=== PATIENT | female | born 1950 | race Caucasian/White ===

== ENCOUNTER → 2020-06-27 09:12 | Outpatient (REF) | payer OTHER, SELFPAY ==
--- NOTE | 2020-06-27 09:30 | CA_ITS ---
Transthoracic Echocardiogram Patient (Last, First, Middle): Adrianna Noland, Gender: Female Date of : 1950 Age: 70 Procedure Date: 06/27/2020 Procedure Type: Transthoracic Echocardiogram Location: OP Height: 167.64 cm Weight: 58.97 kg BSA: 1.67 m2 Heart Rate: bpm BP: 110 / 60 mmHg Stripper Machine Operator: PHIL Stovall MD: Nguyễn Hobbs MD Symptoms: I42.8 NICM Study Quality: Fair ECG Rhythm: Sinus Conclusions: - The left ventricular systolic function is mildly decreased. The visually estimated ejection fraction is between 45-50%. - Mild global hypokinesis with additional regionality to basal inferior and inferolateral wall. - No obvious valvular pathology seen on this study. - There is mild dilatation of the aortic arch measuring 3.86 cm. Findings Left Ventricle Normal left ventricular cavity size. The left ventricular systolic function is mildly decreased. The visually estimated ejection fraction is between 45 50%. Diastolic function is normal for age. E/E prime ratio is <8, consistent with normal filling pressures. Mild global hypokinesis with additional regionality to basal inferior and inferolateral wall. Right Ventricle Normal right ventricular cavity size. There is low normal right ventricular systolic function. Atria Both atria are normal in size. Aortic Valve There is a normal trileaflet aortic valve. There is no aortic valve stenosis. There is no aortic valve regurgitation. Mitral Valve The mitral valve appears normal. There is trace mitral valve regurgitation. There is no mitral valve stenosis. Pulmonic Valve The pulmonic valve was not well visualized. Tricuspid Valve Normal tricuspid valve structure. There is trace tricuspid valve regurgitation. The pulmonary artery systolic pressure is normal. Great Vessels The asc aorta is normal in size. There is mild dilatation of the aortic arch measuring 3.86 cm. Venous The inferior vena cava is normal in size and collapses greater than 50% with inspiration. Pericardium/Pleural There is no evidence of pericardial effusion. Prior Study Comparison Changes noted compared to prior study dated: 06/18/2019. See comments on aortic arch. Recommendations, Care & Conclusions No obvious valvular pathology seen on this study. Measurements M-Mode Liner Measurements Normals - Women/Men AOV Cusps: 2.20 1.5-2.6 cm/m2 2D Linear Measurements IVSd: 0.83 0.6-0.9/0.6-1.0 cm LVIDd: 5.06 3.9-5.3/4.2-5.9 cm LVIDd Index: 3.03 2.4-3.2/2.2-3.1 cm/m2 LVIDs: 3.17 2.0-3.6 cm LVPWd: 0.89 0.7-1.1 cm Ao Root: 2.70 2.1-3.5 cm LA Diam: 3.80 2.7-3.8/3.0-4.0 cm LAIDs Index: 2.28 1.5-2.3 cm/m2 LV Mass: 189.83 67-162/88-224 g LV Mass Index: 113.67 43-95/49-115 g/m2 LVOT Diam: 2.30 3.0+(-)1.3 cm 2D Systolic Function EF 4C: 62.60 >55% EF 2C: 51.10 >55% Mitral Valve MV Pk E: 0.59 MV PK A: 0.70 MV Decel Time: 275.00 E/A: 0.80 E'Lateral: 6.53 E'Medial: 7.40 E/E' Med: 8.00 E/E' Lat: 9.10 PHT: 80.00 MVA PHT: 2.75 Decel [place]: 2.15 Aortic Valve AoV Pk Farzad: 1.08 AoV Pk Grad: 5.00 LVOT LVOT Pk Farzad: 0.56 LVOT Mn Farzad: 0.38 LVOT VTI: 0.13 LVOT Pk Grad: 1.00 LVOT Mn Grad: 1.00 LVOT Diam: 2.30 LVOT Area: 4.15 Diastolic Function MV Pk E: 0.59 MV Pk A: 0.70 E/A: 0.80 E'Medial: 7.40 E/E' Med: 8.00 E' Laterial: 6.53 E/E' Lat: 9.10 Tricuspid Valve RA Press: 3.00 Great Vessels Aorta Ao Root-2D: 2.70 2.0-3.7 cm Ao Asc: 2.80 2.1-3.4 cm Ao Arch: 3.86 Pulmonary Valve PV Pk Farzad: 0.94 Peak PV Grad: 4.00 Updated in Other Vendor System with Status of Final Nguyễn Hobbs MD electronically signed on 06/28/2020 2:54:11 PM with status of Final
== END ==
LOC: HO.CARD 09:12
PROVIDERS: PCP Internal Medicine; Visit Provider Internal Medicine
DX: I42.8 Other cardiomyopathies (principal)
CPT/HCPCS: 93306

== ENCOUNTER → 2020-07-10 09:26 | Outpatient (BNVA) | payer OTHER, SELFPAY | PROVIDERS: PCP Internal Medicine; Visit Provider Internal Medicine | DX: I42.8 Other cardiomyopathies (principal); I71.2 Thoracic aortic aneurysm, without rupture | CPT/HCPCS: 93005; 99212 ==

== ENCOUNTER → 2020-12-22 14:32 | Outpatient (REF) | payer OTHER, SELFPAY ==
--- NOTE | 2020-12-22 14:39 | CA_ITS ---
Transthoracic Echocardiogram Patient (Last, First, Middle): Adrianna Noland, Gender: Female Date of : 1950 Age: 70 Procedure Date: 12/22/2020 Procedure Type: Transthoracic Echocardiogram Location: OP Height: 167.64 cm Weight: 56.7 kg BSA: 1.64 m2 Heart Rate: bpm BP: 118 / 60 mmHg Plant Maintenance Mechanic: Referring MD: Nguyễn Hobbs MD Symptoms: I71.2 - Thoracic aortic aneurysm, without rupture Study Quality: Fair ECG Rhythm: Sinus Conclusions: - The left ventricular systolic function is mildly decreased. The calculated ejection fraction is 47% by biplane method. - No obvious valvular pathology seen on this study. Findings Left Ventricle Normal left ventricular cavity size. There is normal left ventricular wall thickness. The left ventricular systolic function is mildly decreased. The calculated ejection fraction is 47% by biplane method. There is no evidence of regional wall motion abnormalities. E/E prime ratio is <8, consistent with normal filling pressures. Evidence suggests grade I (mild) diastolic dysfunction. Right Ventricle Normal right ventricular cavity size and systolic function. Atria Both atria are normal in size. Aortic Valve There is a normal trileaflet aortic valve. There is no aortic valve stenosis. There is no aortic valve regurgitation. Mitral Valve The mitral valve appears normal. There is trace mitral valve regurgitation. There is no mitral valve stenosis. Pulmonic Valve The pulmonic valve was not well visualized. Tricuspid Valve Normal tricuspid valve structure. There is trace tricuspid valve regurgitation. The pulmonary artery systolic pressure is normal. Great Vessels The aortic annulus, sinuses of valsalva, and asc aorta are normal in size. Arch not well visualized. Venous The inferior vena cava is normal in size and collapses greater than 50% with inspiration. Pericardium/Pleural There is no evidence of pericardial effusion. Prior Study Comparison No significant change compared to prior study dated: 06/27/2020. Recommendations, Care & Conclusions No obvious valvular pathology seen on this study. Measurements 2D Linear Measurements IVSd: 0.79 0.6-0.9/0.6-1.0 cm LVIDd: 4.44 3.9-5.3/4.2-5.9 cm LVIDd Index: 2.71 2.4-3.2/2.2-3.1 cm/m2 LVIDs: 3.16 2.0-3.6 cm LVPWd: 0.81 0.7-1.1 cm Ao Root: 3.30 2.1-3.5 cm LA Diam: 3.70 2.7-3.8/3.0-4.0 cm LAIDs Index: 2.26 1.5-2.3 cm/m2 LV Mass: 137.91 67-162/88-224 g LV Mass Index: 84.09 43-95/49-115 g/m2 LVOT Diam: 2.50 3.0+(-)1.3 cm 2D Systolic Function EF 4C: 44.30 >55% EF 2C: 48.80 >55% EF BiP: 47.10 >55% Mitral Valve MV Pk E: 0.54 MV PK A: 0.66 MV Decel Time: 207.00 E/A: 0.80 E'Lateral: 7.18 E'Medial: 5.11 E/E' Med: 10.50 E/E' Lat: 7.50 PHT: 61.00 MVA PHT: 3.61 Decel [place]: 2.58 Aortic Valve AoV Pk Farzad: 1.17 AoV Mn Farzad: 0.77 AoV VTI: 0.29 AoV Pk Grad: 5.00 Aov Mn Grad: 3.00 ISAK Cont.VTI: 2.23 LVOT LVOT Pk Farzad: 0.54 LVOT Mn Farzad: 0.32 LVOT VTI: 0.13 LVOT Pk Grad: 1.00 LVOT Mn Grad: 1.00 LVOT Diam: 2.50 LVOT Area: 4.91 Diastolic Function MV Pk E: 0.54 MV Pk A: 0.66 E/A: 0.80 E'Medial: 5.11 E/E' Med: 10.50 E' Laterial: 7.18 E/E' Lat: 7.50 Right Ventricle TAPSE (mm): 2.77 Tricuspid Valve TR Pk Farzad: 1.88 TR Pk Grad: 14.00 RA Press: 3.00 RVSP: 17.00 Great Vessels Aorta Ao Root-2D: 3.30 2.0-3.7 cm Ao Asc: 3.20 2.1-3.4 cm Pulmonary Valve PV Pk Farzad: 0.81 Peak PV Grad: 3.00 Updated in Other Vendor System with Status of Final Nguyễn Anjel MD electronically signed on 12/23/2020 8:58:35 AM with status of Final
== END ==
LOC: HO.CARD 14:32
PROVIDERS: PCP Internal Medicine; Visit Provider Internal Medicine
DX: I71.2 Thoracic aortic aneurysm, without rupture (principal)
CPT/HCPCS: 93306

== ENCOUNTER → 2021-01-05 14:43 | Outpatient (BNVA) | payer OTHER, SELFPAY | PROVIDERS: PCP Internal Medicine; Visit Provider Internal Medicine | DX: R15.9 Full incontinence of feces (principal); A04.72 Enterocolitis due to Clostridium difficile, not specified as recurrent; I42.8 Other cardiomyopathies | CPT/HCPCS: 99202 ==

== ENCOUNTER → 2021-01-08 14:17 | Outpatient (BNVA) | payer OTHER, SELFPAY | PROVIDERS: PCP Internal Medicine; Referring Provider Internal Medicine; Visit Provider Internal Medicine | DX: I42.8 Other cardiomyopathies (principal); I71.2 Thoracic aortic aneurysm, without rupture | CPT/HCPCS: 99212 ==

== ENCOUNTER → 2021-12-15 12:35 | Outpatient (REF) | payer OTHER, SELFPAY ==
--- NOTE | 2021-12-15 12:39 | CA_ITS ---
Transthoracic Echocardiogram Patient (Last, First, Middle): Adrianna Noland, Gender: Female Date of : 1950 Age: 71 Procedure Date: 12/15/2021 Procedure Type: Transthoracic Echocardiogram Location: OP Height: 167.64 cm Weight: 56.7 kg BSA: 1.64 m2 Heart Rate: 61 bpm BP: 110 / 60 mmHg Referring MD: Nguyễn Hobbs MD Symptoms: I71.2 - Thoracic aortic aneurysm, without rupture Study Quality: Adequate w contrast ECG Rhythm: Sinus Conclusions: - The left ventricular systolic function is mildly decreased. The visually estimated ejection fraction is between 45-50%. - No obvious valvular pathology seen on this study. Findings Procedure Information Contrast agent, definity, is being given per protocol without apparent complications. Left Ventricle Mildly increased left ventricular cavity size. There is normal left ventricular wall thickness. The left ventricular systolic function is mildly decreased. The visually estimated ejection fraction is between 45-50%. E/E prime ratio is between 8 and 15 consistent with indeterminate filling pressures. Evidence suggests grade I (mild) diastolic dysfunction. Right Ventricle Normal right ventricular cavity size and systolic function. Atria Both atria are normal in size. Aortic Valve There is a normal trileaflet aortic valve. There is no aortic valve stenosis. There is no aortic valve regurgitation. Mitral Valve The mitral valve appears normal. There is trace mitral valve regurgitation. There is no mitral valve stenosis. Pulmonic Valve The pulmonic valve is likely normal. Tricuspid Valve There is trace tricuspid valve regurgitation. The pulmonary artery systolic pressure is normal. Great Vessels The asc aorta and aortic arch are normal in size. Venous The inferior vena cava is normal in size and collapses greater than 50% with inspiration. Pericardium/Pleural There is no evidence of pericardial effusion. Prior Study Comparison No significant change compared to prior study dated: 12/22/2020. Recommendations, Care & Conclusions No obvious valvular pathology seen on this study. Measurements 2D Linear Measurements IVSd: 0.80 0.6-0.9/0.6-1.0 cm LVIDd: 5.58 3.9-5.3/4.2-5.9 cm LVIDd Index: 3.40 2.4-3.2/2.2-3.1 cm/m2 LVIDs: 4.23 2.0-3.6 cm LVPWd: 0.89 0.7-1.1 cm LA Diam: 3.80 2.7-3.8/3.0-4.0 cm LAIDs Index: 2.32 1.5-2.3 cm/m2 LV Mass: 218.92 67-162/88-224 g LV Mass Index: 133.49 43-95/49-115 g/m2 LVOT Diam: 2.50 3.0+(-)1.3 cm 2D Systolic Function EF 4C: 66.60 >55% EF 2C: 56.90 >55% Mitral Valve MV Pk E: 0.64 MV PK A: 0.65 MV Decel Time: 195.00 E/A: 1.00 E'Lateral: 4.35 E'Medial: 5.11 E/E' Med: 12.50 E/E' Lat: 14.70 PHT: 57.00 MVA PHT: 3.86 Decel [place]: 3.28 Aortic Valve AoV Pk Farzad: 1.17 AoV Mn Farzad: 0.79 AoV VTI: 0.26 AoV Pk Grad: 5.00 Aov Mn Grad: 3.00 ISAK Cont.VTI: 2.57 LVOT LVOT Pk Farzad: 0.63 LVOT Mn Farzad: 0.41 LVOT VTI: 0.14 LVOT Pk Grad: 2.00 LVOT Mn Grad: 1.00 LVOT Diam: 2.50 LVOT Area: 4.91 Diastolic Function MV Pk E: 0.64 MV Pk A: 0.65 E/A: 1.00 E'Medial: 5.11 E/E' Med: 12.50 E' Laterial: 4.35 E/E' Lat: 14.70 Right Ventricle TAPSE (mm): 20.70 TVS' Farzad: 11.40 Tricuspid Valve TR Pk Farzad: 2.10 TR Pk Grad: 18.00 RA Press: 3.00 RVSP: 21.00 Great Vessels Aorta Sinus of Valsalva: 3.20 2.0-3.5 cm Ao Asc: 3.20 2.1-3.4 cm Ao Arch: 3.50 Pulmonary Veins Pulm Vein S/D 1.30 Pulmonary Valve PV Pk Farzad: 0.80 Peak PV Grad: 3.00 Updated in Other Vendor System with Status of Final Nguyễn Hobbs MD electronically signed on 12/15/2021 4:22:28 PM with status of Final
== END ==
LOC: HO.CARD 12:35
PROVIDERS: Visit Provider Internal Medicine
DX: I71.2 Thoracic aortic aneurysm, without rupture (principal)
CPT/HCPCS: 93306; Q9957

== ENCOUNTER → 2022-02-04 14:07 | Outpatient (BNVA) | payer OTHER, SELFPAY | PROVIDERS: PCP Internal Medicine; Referring Provider Internal Medicine; Visit Provider Internal Medicine | DX: I42.8 Other cardiomyopathies (principal) | CPT/HCPCS: 93005; 99212 ==

== ENCOUNTER 2023-02-10 13:14 | Outpatient (AMB) | payer OTHER, SELFPAY ==
--- NOTE | 2023-02-10 13:29 | A.OFFVIS_ITS ---
Intake Vital Signs 02/10/23 13:30 Height 5 ft 6 in Weight 138 lb 7.205 oz BMI 22.3 BP 102/68 Blood Pressure Location Lt brachial Position Sitting Pulse 85 Intake Visit Reasons: 1 year follow up Intake Note: 1 year follow up w/ EKG Car Ferry Captain Required: No Accompanied by: Spouse Allergies amoxicillin [Augmentin] Allergy (Unknown, Verified 02/10/23 13:32) rash clavulanic acid [Augmentin] Allergy (Unknown, Verified 02/10/23 13:32) rash diazepam [Valium] Allergy (Unknown, Verified 02/10/23 13:32) unk nitrofurantoin [From Macrobid] Allergy (Unknown, Verified 02/10/23 13:32) unk oxycodone [Percocet] Allergy (Unknown, Verified 02/10/23 13:32) unk simvastatin Allergy (Unknown, Verified 02/10/23 13:32) unk sulfamethoxazole [From Bactrim] Allergy (Unknown, Verified 02/10/23 13:32) unk trimethoprim [From Bactrim] Allergy (Unknown, Verified 02/10/23 13:32) unk cafergot Allergy (Unknown, Uncoded 02/10/23 13:32) unk Latex Gloves Allergy (Unknown, Uncoded 02/10/23 13:32) unk Medication List - Last Reconciled 02/10/23 by Nguyễn Hobbs MD cholecalciferol (vitamin D3) three timed a week orally; metoprolol succinate ER 12.5 mg (1/2 x 25 mg) PO DAILY 90 days spironolactone 12.5 mg (1/2 x 25 mg) PO DAILY HPI HPI Comments History of Present Illness Details Adrianna returns for follow-up regarding cardiomyopathy. To recall, she was a patient of [facility]. She has a history of longstanding nonischemic cardiomyopathy. Initially diagnosed around 2009. At t hat time, LVEF was 40-45%. Subsequently stress test with normal perfusion. It seems that she has had another stress test in 2018 which also showed normal perfusion. Overall, she is generally doing okay. Some intermittent palpitations. With activity, she may feel short of breath. No angina. [facility] Medical History (Updated 02/10/23 @ 13:47 by Nguyễn Hobbs MD) Clostridium difficile colitis Fecal incontinence Nonischemic cardiomyopathy Surgical History No pertinent past surgical history Family History Father No problems noted. Mother No problems noted. Social History Alcohol intake: never Patient Tobacco Use Status: Former Tobacco user Quit Date: Years Smoked: 8 +/- Review of Systems Const Denies weakness ENT Denies dizziness Card Denies chest pain, Denies chest pain with activity, Denies syncope, Denies rapid heart rate, Denies pedal edema, Denies edema, Denies leg edema, Denies lightheadedness, Denies palpitations, Denies dyspnea, Denies dyspnea on exertion and Denies orthopnea Resp Denies cough, Denies dyspnea and Denies dyspnea on exertion GI Denies hematochezia and Denies change in stool character Musc Denies abnormal gait, Denies muscle cramps, Denies muscle weakness, Denies numbness, Denies radiating pain into limb and Denies tingling Neuro Denies abnormal gait, Denies dizziness, Denies syncope, Denies numbness, Denies tingling and Denies weakness Endo Denies palpitations Physical Exam Vital Signs: Last Vital Signs Pulse 85 02/10/23 13:30 BP 102/68 02/10/23 13:30 BMI result Body Mass Index 22.3 Const General: comfortable and no acute distress Orientation/consciousness: patient oriented x3 HEENT Other: Unremarkable Head: Yes normal to inspection Neck Neck: Yes normal visual inspection Chest Chest palpation & inspection: normal inspection of the chest Resp Auscultation: clear to auscultation bilaterally Cardio Palpation: normal PMI Heart sounds: S1 normal heart sound present, S2 normal heart sound present, no gallops, no murmurs and no rubs GI Palpation (GI): Soft to palpation Back/Spine/Pelvis Other: unremarkable Skin General skin exam: no rashes or lesions noted Neuro General: patient oriented x3 Extrem General: Yes normal to inspection Psych Mental Status: mental status grossly normal Office Procedures EKG Details: EKG with sinus rhythm at 85/Min; right bundle-branch morphology PVCs. Mild ST depression in the inferior and anterolateral leads but similar to prior. [id number], Complete Assessment & Plan Assessment & Plan (1) Nonischemic cardiomyopathy: Code(s): I42.8 - Other cardiomyopathies Plan: In the last echocardiogram, LVEF 45-50%. Overall, unchanged from before. Clinically, she has got no symptoms. Continue current regimen. Due to low blood pressure, it seems that she is off losartan. We need to get labs from her PCP. Will request the same. (2) PVC (premature ventricular contraction): Code(s): I49.3 - Ventricular premature depolarization Plan She has mild cardiomyopathy based on prior echocardiograms. She has only on a small dose of beta-blockers with spironolactone. Was on losartan but stopped because of low blood pressure issues. Due to frequent PVCs on EKG as well as shortness of breath with activity, will pursue further workup. Echocardiogram, Holter and stress test are being ordered. Findings as well as plan discussed with patient and significant other and they understand and agree. Orders: Orders CA echo transthoracic complete Today I42.8 - Other cardiomyopathies, I49.3 - Ventricular premature depolarization CA stress test Today I49.3 - Ventricular premature depolarization NM cardiolite stress test Today I49.3 - Ventricular premature depolarization ECG 3 day holter monitor Today I49.3 - Ventricular premature depolarization, R00.2 - Palpitations Coding Level of Care Code Est Pt Level 4 (34341) Diagnoses Nonischemic cardiomyopathy I42.8 PVC (premature ventricular contraction) I49.3 CPT Codes EKG - CPT: 84720-[id number], Complete ([id number])
[2023-02-10 13:30] VITALS: BP 102/68; PULSE 85; BMI 22.3
== END 2023-02-10 13:55 | disposition home or self-care (01) ==
PROVIDERS: PCP Internal Medicine; Visit Provider Internal Medicine
DX: I42.8 Other cardiomyopathies (principal); I49.3 Ventricular premature depolarization
CPT/HCPCS: 93010; 99214

== ENCOUNTER → 2023-02-10 13:14 | Outpatient (BNVA) | payer OTHER, SELFPAY | PROVIDERS: PCP Internal Medicine; Visit Provider Internal Medicine | DX: I42.8 Other cardiomyopathies (principal); I49.3 Ventricular premature depolarization | CPT/HCPCS: 93005; 99212 ==

== ENCOUNTER → 2023-05-10 07:52 | Outpatient (REF) | payer OTHER, SELFPAY ==
--- NOTE | ~2023-05-10 | NM_ITS ---
Exercise Myocardial perfusion study Indication: PVCs with chest discomfort to evaluate for myocardial ischemia Technique: The patient was brought in for an exercise perfusion study on 05/10/2023. Patient performed exercise as per Pierre protocol and was injected 25 mCi of sestamibi was given intravenously one target HR was achieved. Images were obtained using the SPECT gamma camera interlaced with the gating device. Images were obtained in supine position. Resting perfusion study was performed on 05/12/2023. Patient was administered 25 mCi of sestamibi intravenously at rest. Images were then obtained in supine position. Images obtained with and without CT attenuation. Total DLP 114 mGy-cm Images were processed with the software and compared side to side in short axis, horizontal long axis and vertical long axis views. Findings: Both stress and rest perfusion study was suboptimal due to arms down as well as intense para-cardiac activity, question hiatal hernia noted as well as subdiaphragmatic liver uptake. There is interference with the lateral wall uptake The stress perfusion study showed non attenuated images show mildly reduced uptake in the entire inferolateral and lateral wall of the LV myocardium. Attenuated corrected images show normal uptake of radiotracer in all segments of LV myocardium.. The gated study shows reduced LV systolic function with calculated LVEF of 44%. LV cavity is normal in size. The gated study shows normal systolic wall thickening and contraction of all segments. There is no transient ischemic dilation. Resting study shows both attenuated as well as non attenuated images are suboptimal with severely reduced uptake noted on non attenuated images. Gating at rest reveals normal systolic wall motion with ejection fraction at 40%. The findings are consistent with likely normal myocardial perfusion based on attenuated corrected stress images although confidence of interpretation is low given extracardiac activity interfering with myocardial uptake. NM/NM cardiolite stress test Impression: 1. Likely normal myocardial perfusion 2. Gated LVEF is 44%, visually appears to be higher. Consider echocardiogram 3. Transient ischemic dilatation not present Stress EKG is no other EKG changes
--- NOTE | 2023-05-10 07:56 | CA_ITS ---
Transthoracic Echocardiogram Patient (Last, First, Middle): Adrianna Noland, Gender: Female Date of : 1950 Age: 72 Procedure Date: 05/10/2023 Procedure Type: Transthoracic Echocardiogram Location: OP Height: 167.64 cm Weight: 63.5 kg BSA: 1.72 m2 Heart Rate: 60 bpm BP: 120 / 70 mmHg Stage Manager: JEROME Stovall MD: Nguyễn Hobbs MD Retail Support Associate: Christian Mejia MD Symptoms: I49.3 - Ventricular premature depolarization Study Quality: Fair ECG Rhythm: Sinus Conclusions: - 1. Mildly dilated left ventricle with mildly to moderately reduced LV systolic function with LVEF of 40-45% with impaired relaxation filling pattern 2. Mild mitral regurgitation 3. Normal RV systolic pressure 4. No gross pericardial effusion Findings Left Ventricle Mildly increased left ventricular cavity size. There is normal left ventricular wall thickness. The left ventricular systolic function is mild to moderately decreased. The visually estimated ejection fraction is between 40-45%. Spectral Doppler is indicative of an impaired relaxation filling pattern. E/E prime ratio is between 8 and 15 consistent with indeterminate filling pressures. Peak GLS is -14.0%, which is moderately reduced. Right Ventricle Normal right ventricular cavity size and systolic function. Atria Both atria are normal in size. There is no evidence of interatrial shunt. Aortic Valve The aortic valve structure and function is likely normal. There is no aortic valve stenosis. There is no aortic valve regurgitation. Mitral Valve There is mild anterior and posterior mitral leaflet thickening. There is mild mitral valve regurgitation. There is no mitral valve stenosis. Pulmonic Valve The pulmonic valve is likely normal. Tricuspid Valve Normal tricuspid valve structure. There is trace tricuspid valve regurgitation. The right ventricular systolic pressure is normal. The right ventricular systolic pressure is 19 mmHg. Normal right atrial pressure. There is no evidence of pulmonary hypertension. Great Vessels All visible segments of the aorta are normal in size. The pulmonary artery was not well visualized. Venous The inferior vena cava is normal in size and collapses greater than 50% with inspiration. Pericardium/Pleural There is no evidence of pericardial effusion. Prior Study Comparison Changes noted compared to prior study dated: 12/15/2021. LV systolic function is further mildly depressed Measurements 2D Linear Measurements IVSd: 0.74 0.6-0.9/0.6-1.0 cm LVIDd: 5.77 3.9-5.3/4.2-5.9 cm LVIDd Index: 3.35 2.4-3.2/2.2-3.1 cm/m2 LVIDs: 4.06 2.0-3.6 cm LVPWd: 0.69 0.7-1.1 cm LA Diam: 3.80 2.7-3.8/3.0-4.0 cm LAIDs Index: 2.21 1.5-2.3 cm/m2 LV Mass: 188.39 67-162/88-224 g LV Mass Index: 109.53 43-95/49-115 g/m2 LVOT Diam: 2.60 3.0+(-)1.3 cm 2D Systolic Function EF 4C: 47.70 >55% EF 2C: 41.20 >55% EF BiP: 45.30 >55% Mitral Valve MV Pk E: 0.64 MV PK A: 0.87 MV Decel Time: 162.00 E/A: 0.70 E'Lateral: 6.53 E'Medial: 5.00 E/E' Med: 12.90 E/E' Lat: 9.80 PHT: 47.00 MVA PHT: 4.68 Decel [place]: 3.96 Aortic Valve AoV Pk Farzad: 1.20 AoV Mn Farzad: 0.89 AoV VTI: 0.31 AoV Pk Grad: 6.00 Aov Mn Grad: 3.00 ISAK Cont.VTI: 2.58 LVOT LVOT Pk Farzad: 0.58 LVOT Mn Farzad: 0.48 LVOT VTI: 0.15 LVOT Pk Grad: 1.00 LVOT Mn Grad: 1.00 LVOT Diam: 2.60 LVOT Area: 5.31 Diastolic Function MV Pk E: 0.64 MV Pk A: 0.87 E/A: 0.70 E'Medial: 5.00 E/E' Med: 12.90 E' Laterial: 6.53 E/E' Lat: 9.80 Right Ventricle TAPSE (mm): 19.60 TVS' Farzad: 7.83 Tricuspid Valve TR Pk Farzad: 1.98 TR Pk Grad: 16.00 RA Press: 3.00 RVSP: 19.00 Great Vessels Aorta Sinus of Valsalva: 3.70 2.0-3.5 cm Ao Asc: 3.30 2.1-3.4 cm Pulmonary Valve PV Pk Farzad: 0.76 Peak PV Grad: 2.00 Updated in Other Vendor System with Status of Final Christian Mejia MD electronically signed on 05/11/2023 4:56:14 PM with status of Final
--- NOTE | 2023-05-10 07:56 | CA_ITS ---
Acquisition Time: 2023-05-10 09:19:30 Total Exercise Time: 00:06:59 Test Indications: SOB, CARDIOMYOPATHY Medications: Protocol: TYREE Max HR: 130 BPM 88% of Pred: 147 BPM Max BP: 146/060 mmHG Max Work Load: 8.5 METS Exercise stress test with exercise 6 min 59 sec of Tyree protocol achieving 87% MPHR, with report of fullness in chest, mild SOB, islayed PVCs, with normotensive response to exercise, with baseline EKG abnormalites no signifcant changes. Nuclear images pending. Test reviewed with Dr. Mejia Referred By: Nguyễn Hobbs Overread By: Alix Lorenzo
--- NOTE | 2023-05-10 07:56 | HM_ITS ---
* Total monitoring time 3 days. * Underlying rhythm is sinus with an average rate of 70/Min. Range 53 to 95/Min. * Frequent ventricular ectopy with a burden of 1.9%. Mostly isolated beats but also includes couplets, triplets, bigeminy and trigeminy. 2 brief runs. Longest 6 beats. * Rare supraventricular ectopy. * No significant pauses or AV blocks. * Patient symptoms including chest pain/rapid heartbeat correlates with PVCs. MTDD
== END ==
LOC: HO.CARD 07:52
PROVIDERS: PCP Internal Medicine; Visit Provider Internal Medicine
DX: I49.3 Ventricular premature depolarization (principal); I42.8 Other cardiomyopathies; R00.2 Palpitations
CPT/HCPCS: 78452; 93017; 93242; 93306; 93356; A9500

== ENCOUNTER 2023-05-30 13:12 | Outpatient (REF) | payer OTHER, SELFPAY | END 2023-05-30 13:13 | disposition home or self-care (01) | LOC: HO.LAB 13:12 | PROVIDERS: PCP Internal Medicine; Visit Provider Internal Medicine | DX: I42.8 Other cardiomyopathies (principal) | CPT/HCPCS: 36415; 80048; 83880; 99212 ==

== ENCOUNTER 2023-05-30 13:12 | Outpatient (AMB) | payer OTHER, SELFPAY ==
[2023-05-30 13:17] VITALS: BP 138/72; PULSE 72; BMI 22.8
--- NOTE | 2023-05-30 13:17 | MHC.OFFVIS ---
Intake Vital Signs 05/30/23 13:17 Height 5 ft 6 in Weight 141 lb 1.533 oz BMI 22.8 BP 138/72 Blood Pressure Location Lt brachial Position Sitting Pulse 72 Intake Visit Reasons: f/up echo/ holter/ stress Intake Note: Follow-up echo , holter and stress feeling good Noteman Required: No Allergies amoxicillin [Augmentin] Allergy (Unknown, Verified 02/10/23 13:32) rash clavulanic acid [Augmentin] Allergy (Unknown, Verified 02/10/23 13:32) rash diazepam [Valium] Allergy (Unknown, Verified 02/10/23 13:32) unk nitrofurantoin [From Macrobid] Allergy (Unknown, Verified 02/10/23 13:32) unk oxycodone [Percocet] Allergy (Unknown, Verified 02/10/23 13:32) unk simvastatin Allergy (Unknown, Verified 02/10/23 13:32) unk sulfamethoxazole [From Bactrim] Allergy (Unknown, Verified 02/10/23 13:32) unk trimethoprim [From Bactrim] Allergy (Unknown, Verified 02/10/23 13:32) unk cafergot Allergy (Unknown, Uncoded 02/10/23 13:32) unk Latex Gloves Allergy (Unknown, Uncoded 02/10/23 13:32) unk Medication List - Last Reconciled 05/30/23 by Nguyễn Hobbs MD cholecalciferol (vitamin D3) three timed a week orally; metoprolol succinate ER 12.5 mg (1/2 x 25 mg) PO DAILY 90 days spironolactone 12.5 mg (1/2 x 25 mg) PO DAILY HPI HPI Comments History of Present Illness Details Adrianna returns for follow-up regarding cardiomyopathy. To recall, she was a patient of [facility]. She has a history of longstanding nonischemic cardiomyopathy. Initially diagnosed around 2009. At that time, LVEF was 40-45%. Subsequently stress test with normal perfusion. It seems that she has had another stress test in 2018 which also showed normal perfusion. Overall, doing fine. No new concerns. No major cardiac symptoms within limits of her activity. [facility] Medical History (Updated 02/10/23 @ 13:47 by Nguyễn Hobbs MD) Clostridium difficile colitis Fecal incontinence Nonischemic cardiomyopathy Surgical History No pertinent past surgical history Family History Father No problems noted. Mother No problems noted. Social History Alcohol intake: never Patient Tobacco Use Status: Former Tobacco user Quit Date: Years Smoked: 8 +/- Review of Systems Const Denies chills, Denies fatigue, Denies fever(s), Denies frequent falls, Denies weakness, Denies weight gain and Denies weight loss ENT Denies dizziness Card Denies chest pain, Denies leg edema, Denies lightheadedness, Denies palpitations, Denies dyspnea, Denies dyspnea on exertion, Denies orthopnea and Denies other (loss of consciousness) Resp Denies cough, Denies dyspnea and Denies dyspnea on exertion GI Denies hematochezia and Denies change in stool character Musc Denies abnormal gait, Denies muscle weakness, Denies numbness, Denies radiating pain into limb and Denies tingling Neuro Denies abnormal gait, Denies dizziness, Denies frequent falls, Denies numbness, Denies tingling and Denies weakness Endo Denies fatigue and Denies palpitations Physical Exam Vital Signs: Last Vital Signs Pulse 72 05/30/23 13:17 BP 138/72 05/30/23 13:17 BMI result Body Mass Index 22.8 Const General: comfortable and no acute distress Orientation/consciousness: patient oriented x3 HEENT Other: Unremarkable Head: Yes normal to inspection Neck Neck: Yes normal visual inspection Chest Chest palpation & inspection: normal inspection of the chest Resp Auscultation: clear to auscultation bilaterally Cardio Palpation: normal PMI Heart sounds: S1 normal heart sound present, S2 normal heart sound present, no gallops, no murmurs and no rubs GI Palpation (GI): Soft to palpation Back/Spine/Pelvis Other: unremarkable Skin General skin exam: no rashes or lesions noted Neuro General: patient oriented x3 Extrem General: Yes normal to inspection Psych Mental Status: mental status grossly normal Assessment & Plan Assessment & Plan (1) Nonischemic cardiomyopathy: Code(s): I42.8 - Other cardiomyopathies (2) PVC (premature ventricular contraction): Code(s): I49.3 - Ventricular premature depolarization Plan Cardiac studies reviewed. Echocardiogram with LVEF of 40-45%. Myocardial perfusion imaging study unremarkable. Holter shows underlying sinus rhythm with an average rate of 70/Min. Frequent PVCs. [place] of 1.9%. Overall, mild, stable cardiomyopathy. She has only on a small dose of beta-blockers with spironolactone. Was on losartan but stopped because of low blood pressure issues. No volume overload and hence no indication for diuretics at this time. We will see her back in 1 year. In the interim, call with concerns. Discussed with significant other. Orders: Orders Basic Metabolic Panel Today I42.8 - Other cardiomyopathies B Type Natriuretic Peptide Today I42.8 - Other cardiomyopathies Medications: Refilled metoprolol succinate ER 12.5 mg (1/2 x 25 mg) PO DAILY 45 tabs 3RF 90 days I42.8 - Other cardiomyopathies Coding Level of Care Code Est Pt Level 4 (43283) Diagnoses Nonischemic cardiomyopathy I42.8 PVC (premature ventricular contraction) I49.3
== END 2023-05-30 13:48 | disposition home or self-care (01) ==
PROVIDERS: PCP Internal Medicine; Visit Provider Internal Medicine
DX: I42.8 Other cardiomyopathies (principal); I49.3 Ventricular premature depolarization
CPT/HCPCS: 99214

== ENCOUNTER 2024-07-26 13:48 | Outpatient (AMB) | payer OTHER, SELFPAY ==
--- NOTE | 2024-07-26 14:11 | MHC.OFFVIS ---
Vital Signs 07/26/24 14:13 Height 5 ft 6 in Weight 145 lb 8.081 oz BMI 23.5 BP 110/60 Blood Pressure Location Lt brachial Position Sitting Pulse 64 Pulse Source Monitor Intake Visit Reasons: r/s 05/30/24 1 yr followup w/ekg Telephone Services Sales Representative Required: No Accompanied by: Significant Other Allergies amoxicillin [Augmentin] Allergy (Unknown, Verified 02/10/23 13:32) rash clavulanic acid [Augmentin] Allergy (Unknown, Verified 02/10/23 13:32) rash diazepam [Valium] Allergy (Unknown, Verified 02/10/23 13:32) unk nitrofurantoin [From Macrobid] Allergy (Unknown, Verified 02/10/23 13:32) unk oxycodone [Percocet] Allergy (Unknown, Verified 02/10/23 13:32) unk simvastatin Allergy (Unknown, Verified 02/10/23 13:32) unk sulfamethoxazole [From Bactrim] Allergy (Unknown, Verified 02/10/23 13:32) unk trimethoprim [From Bactrim] Allergy (Unknown, Verified 02/10/23 13:32) unk cafergot Allergy (Unknown, Uncoded 02/10/23 13:32) unk Latex Gloves Allergy (Unknown, Uncoded 02/10/23 13:32) unk Medication List - Last Reconciled 07/26/24 by Nguyễn Hobbs MD cholecalciferol (vitamin D3) three timed a week orally; metoprolol succinate ER 12.5 mg (1/2 x 25 mg) PO DAILY 90 days spironolactone 12.5 mg (1/2 x 25 mg) PO DAILY HPI Comments Details: Adrianna returns for follow-up regarding cardiomyopathy. To recall, she was a patient of [facility]. She has a history of longstanding nonischemic cardiomyopathy. Initially diagnosed around 2009. At that time, LVEF was 40-45%. Subsequently stress test with normal perfusion. It seems that she has had another stress test in 2018 which also showed normal perfusion. Since last seen, she states she is generally doing well. No clear-cut symptoms like angina or shortness of breath or in fact anything cardiac sounding. Getting along okay. [facility], [facility] Medical History (Updated 02/10/23 @ 13:47 by Nguyễn Hobbs MD) Clostridium difficile colitis Fecal incontinence Nonischemic cardiomyopathy Surgical History No pertinent past surgical history Family History Father No problems noted. Mother No problems noted. Social History Alcohol intake: never Patient Tobacco Use Status: Former Tobacco user Years Smoked: 8 +/- Review of Systems Const Denies chills, Denies fatigue, Denies fever(s), Denies frequent falls, Denies weakness, Denies weight gain and Denies weight loss ENT Denies dizziness Card Denies chest pain, Denies leg edema, Denies lightheadedness, Denies palpitations, Denies dyspnea and Denies dyspnea on exertion Resp Denies cough, Denies dyspnea and Denies dyspnea on exertion GI Denies hematochezia Musc Denies abnormal gait, Denies muscle weakness, Denies numbness, Denies radiating pain into limb and Denies tingling Neuro Denies abnormal gait, Denies dizziness, Denies frequent falls, Denies numbness, Denies tingling and Denies weakness Endo Denies fatigue and Denies palpitations Physical Exam Vital Signs: Last Vital Signs Pulse 64 07/26/24 14:13 BP 110/60 07/26/24 14:13 BMI result Body Mass Index 23.5 Const General: comfortable and no acute distress Orientation/consciousness: patient oriented x3 HEENT Other: Unremarkable Head: Yes normal to inspection Neck Neck: Yes normal visual inspection Chest Chest palpation & inspection: normal inspection of the chest Resp Auscultation: clear to auscultation bilaterally Cardio Palpation: normal PMI Heart sounds: S1 normal heart sound present, S2 normal heart sound present, no gallops, no murmurs and no rubs GI Palpation (GI): Soft to palpation Back/Spine/Pelvis Other: unremarkable Skin General skin exam: no rashes or lesions noted Neuro General: patient oriented x3 Extrem General: Yes normal to inspection Psych Mental Status: mental status grossly normal Office Procedures EKG Details: EKG with underlying sinus rhythm at 64/Min; inferior and anterolateral nonspecific ST-T changes; [place] [id number], Complete Assessment & Plan Assessment & Plan (1) Nonischemic cardiomyopathy: Code(s): I42.8 - Other cardiomyopathies Category: Medical (2) PVC (premature ventricular contraction): Code(s): I49.3 - Ventricular premature depolarization Category: Medical Plan Cardiac studies reviewed. Echocardiogram from 2022 with LVEF of 40-45%. Myocardial perfusion imaging study from 2022 unremarkable. Holter 2022 shows underlying sinus rhythm with an average rate of 70/Min. Frequent PVCs. [place] of 1.9%. Overall, mild nonischemic cardiomyopathy without any overt heart failure symptoms or signs. She remains on beta-blockers/spironolactone. Previously, losartan was stopped because of low blood pressure. Not on regular diuretics. Otherwise, mainly reassurance. She will contact us with any ongoing concerns but otherwise, follow-up in one year. Coding Level of Care Code Est Pt Level 4 (05157) Complex EM visit Add On G2211 Diagnoses Nonischemic cardiomyopathy I42.8 PVC (premature ventricular contraction) I49.3 CPT Codes EKG - CPT: 66761-[id number], Complete ([id number])
[2024-07-26 14:13] VITALS: BP 110/60; PULSE 64; BMI 23.5
--- OUTSIDE RECORDS SUMMARY | 2024-07-26 16:50 | XMS_ITS | Clinical Summary ---
Author Organization [facility] Address [address] [place] [address] Phone Care Team Providers Care Cycle Liaison Name Role Phone Gonzalo Saba MD Primary Care Provider Allergies Active Allergy Reactions Criticality Noted Date Comments Diazepam Low 11/22/2007 Syncope/hypotension Ergotamine 10/15/2020 Ergotamine-Caffeine 05/18/2005 Latex Rash Medium 08/05/2009 Oxycodone-Acetaminophen Low 11/22/2007 Syncope/hypotension Red Dye Low 04/28/2012 Muscle aches Sulfa (Sulfonamide Antibiotics) GI intolerance Low 06/18/2024 Medications spironolactone (ALDACTONE) 25 mg tablet Take 0.5 tablets (12.5 mg total) by mouth 1 (one) time each day. Active metoprolol succinate (TOPROL-XL) 25 mg 24 hr tablet Take 0.5 tablets (12.5 mg total) by mouth 1 (one) time each day. 01/26/2019 Active estradioL (ESTRACE) 0.01 % (0.1 mg/gram) vaginal cream Apply three times per week 04/10/2021 Active ciprofloxacin (CIPRO) 250 mg tablet Take by mouth 2 (two) times a day. Active omeprazole OTC (PriLOSEC OTC) 20 mg EC tablet Take 1 tablet (20 mg total) by mouth 1 (one) time each day. Do not crush, chew, or split. Active Encounters Date Type Department Care Team Description 06/18/2024 11:53 AM EST Anesthesia Event [facility] Main OR [address] [place] [address] Eder Ye MD Vicente Garcia SRNA 06/18/2024 10:30 AM EST - 06/18/2024 12:00 PM EST Surgery [facility] OR [address] [place] [address] Debbi Weaver MD CYSTOSCOPY & hydrodistention [54341 (CPT??) +1 more] 06/18/2024 8:57 AM EST - 06/18/2024 2:47 PM EST Hospital Encounter [facility] OR [address] [place] [phone] Debbi Weaver MD Personal history of urinary (tract) infections Discharge Disposition: Home or Self Care from Last 3 Months Surgical History Surgery Date Site/Laterality Comments OTHER SURGICAL HISTORY 02/2005 PROCEDURE: MAMMOGRAM COLONOSCOPY 03/2004 PROCEDURE: HISTORICAL COLONOSCOPY; COMMENT: normal APPENDECTOMY 1999 PROCEDURE: SD APPENDECTOMY HYSTERECTOMY 2001 PROCEDURE: HISTORICAL VAGINAL HYSTERECTOMY W/O BSO; COMMENT: ovaries present CHOLECYSTECTOMY 2009 PROCEDURE: HISTORICAL CHOLECYSTECTOMY; COMMENT: neg cholangiogram 2009 BREAST BIOPSY Bilateral PROCEDURE: BX BREAST; PERC NEEDLE CORE W/IMAG GUID COLONOSCOPY 2014 PROCEDURE: HISTORICAL COLONOSCOPY; COMMENT: no polyps BREAST SURGERY Bilateral PROCEDURE: SD UNLISTED PROCEDURE BREAST; COMMENT: exc bx HYSTERECTOMY PROCEDURE: HISTORICAL HYSTERECTOMY OTHER SURGICAL HISTORY 2011 PROCEDURE: ARTHROSCOPY SHOULDER SURGI UPPER GASTROINTESTINAL ENDOSCOPY 2013 PROCEDURE: SD UPPER GI ENDOSCOPY PERFORMED; COMMENT: normal esophagus on PPI once a week. BLADDER SURGERY PROCEDURE: HISTORICAL BLADDER SURGERY; COMMENT: bladder suspension COLONOSCOPY 07/11/2019 PROCEDURE: HISTORICAL COLONOSCOPY; COMMENT: Minimal diverticulosis; random biopsies obtained: HERNIA REPAIR PROCEDURE: SD REPAIR FIRST ABDOMINAL WALL HERNIA Medical History Medical History Date Comments GERD (gastroesophageal reflu x disease) 10/26/2013 DX:GERD (gastroesophageal re flux disease) Migraine 03/24/2018 DX:Migraine Cystocele with prolapse 03/24/2018 DX:Cysto nate with prolapse; COMMENT: SANTIAGO and BSO 2007 s/p sling and cystocele with Dr Rogel 2005 secondary to prolapse has had urinary frequency since then Follows with urology Vasovagal syncope 11/22/2007 DX:Vasovagal s yncope; COMMENT: Patient has been seen by Dr. Henry. Workup has included unremarkable Holter monitor and echocardiogram. 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 Found incidentially on work up for hematuria on CT abdomen/pelvis 02/2018. S/p Pelvic US 03/2018 showed likely adnexal cyst. Repeat CT 09/2018 showed enlarging thus was referred to franchise sales representative/onc 10/2018 Dilated cardiomyopathy (CMS/HCC) 12/02/2010 DX:Dilated cardiomyopathy (HCC); COMMENT: Follows with cardiology, NICM. Normal TTE 11/2017, 11/20/2018.. Normal nuclear stress 01/2010 C. difficile diarrhea 12/18/2018 DX:C. diff icile diarrhea Family History Medical History Relation Name Comments Colon cancer Aunt paternal Kidney cancer Brother 1 kidney Alzheimer's disease Father CABG Father Cataracts Father Stroke Father Parkinson's Disease Mother pacemake r Uterine cancer Paternal Grandmother 62 Heart attack Sister 1 45 Arthritis Sister 2 Blindness Neg Hx Breast cancer Neg Hx Glaucoma Neg Hx Macular degeneration Neg Hx Ovarian cancer Neg Hx Pancreatic cancer Neg Hx Prostate cancer Neg Hx Strabismus Neg Hx Relation Name Status Comments Aunt Brother 1 Brother 2 Alive Brother 3 Alive Brother 4 (Age 58) renal canc er Father (Age 87) cad Mother (Age 90) ? Paternal Grandmother 62 Alive Sister 1 Sister 2 Sister 3 Alive Sister 4 Alive Sister 5 Alive Social History Tobacco Use Types Packs/Day Years Used Date Smoking Tobacco: Former Cigarettes Q uit: 05/23/1977 Smokeless Tobacco: Never Alcohol Use Standard Drinks/Week Comments No 5.8 (1 standard drink = 0.6 oz p ure alcohol) Comments Unknown Sex and Gender Information Value Date Recorded Sex Assigned at Female 06/15/2024 8:40 AM EST Legal Sex Female 11:46 AM EST Gender Identity Female 06/15/2024 8:40 AM EST Sexual Orientation Straight 06/18/2024 8: 53 AM EST Obstetrics History Last Filed Vital Signs Vital Sign Reading Time Taken Comments Blood Pressure 115/64 06/18/2024 1:39 PM EST Pulse 61 06/18/2024 1:39 PM EST Temperature 36.6 ??C (97.9 ??F) 06/18/2024 1:39 PM ES T Respiratory Rate 18 06/18/2024 1:39 PM EST Oxygen Saturation 98% 06/18/2024 1:39 PM EST Inhaled Oxygen Concentration - - Weight 63.5 kg (140 lb) 05/30/2024 11:00 AM EST Height 167.6 cm (5' 6 ) 05/30/2024 11:00 AM EST Body Mass Index 22.6 05/30/2024 11:00 AM EST Plan of Treatment Health Maintenance Due Date Last Done Comments Pneumococcal Vaccine: 50+ Years (3 of 3 - PCV20 or PCV21) 04/13/2018 04/13/2013, 11/04/2010 Zoster Vaccines (3 of 3) 06/01/2021 04/06/2021, 10/22 DTaP,Tdap,and Td Vaccines (3 - Td or Tdap) 03/28/2022 03/28/2012, 09/18/2001 Cholesterol Screening (Lipid Panel) 04/30/2022 Colorectal Cancer Screening: Colonoscopy 04/30/2022 Depression Screening 04/30/2022 Hepatitis C Screening 04/30/2022 Medicare Annual Wellness Visit 04/30/2022 Social Influencers of Health Screening 04/30/2022 COVID-19 Vaccine ( season) 2024 05/21/2021, 08/16/2020, 07/26/2020 Influenza Vaccine (#1) 2024 8, 02/20/2017, 03/16/2016, Additional history exists RSV Immunization Patients 60+ Years Old (1 - 1-dose 75+ series) 2024 Falls Risk Assessment 06/18/2025 06/18/2024 Osteoporosis Screening (Bone Density Screening) 02/26/2032 02/25/2022, 04/30/2019, 02/17/2017 Breast Cancer Screening Discontinued 06/05/19 21, 05/31/2019, 05/04/2018, Additional history exists HIB Vaccines Aged Out No longer eligi ble based on patient's age to complete this topic HPV Vaccines Aged Out No longer eligi ble based on patient's age to complete this topic Hepatitis A Vaccines Aged Out No long er eligible based on patient's age to complete this topic Hepatitis B Vaccines Aged Out No long er eligible based on patient's age to complete this topic IPV Vaccines Aged Out No longer eligi ble based on patient's age to complete this topic MMR Vaccines Aged Out No longer eligi ble based on patient's age to complete this topic Meningococcal ACWY Vaccine Aged Out N o longer eligible based on patient's age to complete this topic Meningococcal B Vacine Aged Out No lo nger eligible based on patient's age to complete this topic RSV Immunization Patients Under 20 months Aged Out No longer eligible based on patient's age to complete this topic Varicella Vaccines Aged Out No longer eligible based on patient's age to complete this topic Procedures Procedure Name Priority Date/Time Associated Diagnosis Comments OXYGEN THERAPY, ADULT Routine 06/18/2024 12:40 PM EST OXYGEN THERAPY, ADULT Routine 06/18/2024 12:40 PM EST CULTURE URINE Routine 06/18/2024 12:09 PM EST Personal history of urinary (tract) infections TH AN ENDOTRACHEAL(NO CHARGE) Routine 06/18/2024 12:07 PM EST SD CYSTOURETHROSCOPY WITH INSERTION INDWELLING URETERAL STENT 06/18/2024 11:53 AM EST Personal history of urinary (tract) infections Case Notes C-ARM SD CYSTOURETHROSCOPY WITH BIOPSY(S) 06/18/2024 11:53 AM EST Personal history of urinary (tract) infections Case Notes C-ARM DXA BONE DENSITY STUDY 1+ SITS AXIAL SKEL Routine 02/25/2022 3:22 PM EDT Other specified disorders of bone density and structure, multiple sites SCR MAMMO BI INCL CAD Routine 06/05/2020 1:32 PM EST Encounter for other screening for malignant neoplasm of breast from Last 3 Months or Most Recently Relevant to Health Maintenance Results * Culture urine (06/18/2024 12:09 PM EST) Culture, Urine No growth 06/20/2024 9:59 AM EST [facility] Urine Urine specimen from urinary conduit / Unknown 06/18/2024 12:09 PM EST 06/18/2024 12:52 PM EST us Debbi Weaver MD LAB MICROBIOLOGY - GENER AL ORDERABLES Final Result [facility] ([facility] [address] [place] [address], [place] [phone] * TH AN ENDOTRACHEAL(NO CHARGE) (06/18/2024 12:07 PM EST) Narrative Vicente Garcia SRNA - 06/18/2024 12:07 PM EST PAU Barnes ? 06/18/2024 12:08 PM General Information and Staff Patient location during procedure: OR Resident/SPRING FORMER HAND: PAU Barnes Performed: resident/SPRING FORMER HAND/CAA Performed by: PAU Barnes Authorized by: Eder Ye MD ?? Intubation Airway not difficult Urgency: elective Final Airway Details Successful airway: ETT Cuffed: yes Successful intubation technique: direct laryngoscopy Facilitating devices/methods: intubating stylet Endotracheal tube insertion site: oral Blade: Lalo Blade size: #3 ETT size (mm): 7.0 Cormack-Lehane Classification: grade I - full view of glottis Placement verified by: chest auscultation and capnometry Measured from: teeth ETT to teeth (cm): 21 Number of attempts at approach: 1Final airway type: endotracheal airway Indications and Patient Condition Indications for airway management: anesthesia Spontaneous Ventilation: absent Sedation level: Yes Preoxygenated: yes Soft Tissue Damage: No Dentition Unchanged: Yes Patient position: sniffing MILS maintained throughout Mask difficulty assessment: 2 - vent by mask + OA or adjuvant +/- NMBA us Eder Ye MD ANESTHESIA ORDERABLES Final Re sult * DXA BONE DENSITY STUDY 1+ SITS AXIAL SKEL (02/25/2022 3:22 PM EDT) Anatomical Region Laterality Modality Bone Densitometr y 10/29/2021 10:2 7 AM EDT Narrative 02/25/2022 3:37 PM EDT BONE DENSITY (DEXA) ? Lumbar Spine T-score is -2.6. ?? (SD relative to 20-29 y/o adult) Z-score is -0.4. ??(SD relative to age matched peers) This is considered osteoporosis by WHO criteria. Left Hip T-score is -2.2. Z-score is -0.4. This is considered osteopenia by WHO criteria. Lateral view of the spine demonstrates vertebral heights to be maintained. IMPRESSION: Patient is considered to have osteoporosis by WHO criteria. The [facility] Department of Internal Medicine recommends using National Osteoporosis Foundation (NOF) guidelines in treatment decisions related to osteoporosis. NOF guidelines suggest considering treatment for postmenopausal women and men aged 50 or older presenting with the following: History of hip or vertebral fracture. T-score = -2.5 (DXA) at the femoral neck, total hip, or spine, after appropriate evaluation to exclude secondary causes. Low bone mass (T-score between -1.0 and -2.5 at the femoral neck or spine) AND a 10-year probability of a hip fracture = 3% OR a 10-year probability of a major osteoporosis-related fracture = 20% based on the [place]-adapted WHO algorithm Please note that all treatment decisions require clinical judgment and consideration of individual patient factors, including patient preferences, co-morbidities, previous drug use, risk factors not captured in the FRAX model (e.g., frailty, falls, vitamin D deficiency, increased bone turnover, interval significant decline in bone density) and possible under- or over-estimation of fracture risk by FRAX. Optional alternative screening schedule based on amrtínez Chamberlain., [facility] June 10, 2011 for patients with osteopenia (based on hip BMD T-score) is as follows: * ??advanced osteopenia (T scores -2.00 to -2.49), BMD testing every year * ??moderate osteopenia (T scores -1.50 to -1.99), BMD testing every 5 years mild osteopenia or normal BMD (T scores -1.50 and higher), BMD testing every 15 years Procedure Note Jenn Young MD - 05/11/2022 BONE DENSITY (DEXA) Lumbar Spine T-score is -2.6. (SD relative to 20-29 y/o adult) Z-score is -0.4. (SD relative to age matched peers) This is considered osteoporosis by WHO criteria. Left Hip T-score is -2.2. Z-score is -0.4. This is considered osteopenia by WHO criteria. Lateral view of the spine demonstrates vertebral heights to bemaintained. IMPRESSION: Patient is considered to have osteoporosis by WHO criteria. The [facility] Department of Internal Medicine recommendsusing National Osteoporosis Foundation (NOF) guidelines in treatment decisions related toosteoporosis. NOF guidelines suggest considering treatment for postmenopausal women and menaged 50 or older presenting with the following: History of hip or vertebral fracture. T-score = -2.5 (DXA) at the femoral neck, total hip, or spine, afterappropriate evaluation to exclude secondary causes. Low bone mass (T-score between -1.0 and -2.5 at the femoral neck or spine)AND a 10-year probability of a hip fracture = 3% OR a 10-year probability of a majorosteoporosis-related fracture = 20% based on the [place]-adapted WHO algorithm Please note that all treatment decisions require clinical judgment andconsideration of individual patient factors, including patient preferences, co- morbidities,previous drug use, risk factors not captured in the FRAX model (e.g., frailty, falls, vitaminD deficiency, increased bone turnover, interval significant decline in bone density) andpossible under- or over-estimation of fracture risk by FRAX. Optional alternative screening schedule based on martínez Chambelrain., NEJJanuary 2011 for patients with osteopenia (based on hip BMD T-score) is as follows: * advanced osteopenia (T scores -2.00 to -2.49), BMD testing every year * moderate osteopenia (T scores -1.50 to -1.99), BMD testing every 5years mild osteopenia or normal BMD (T scores -1.50 and higher), BMD testingevery 15 years Nikkie Marie MD IMG DXA PROCEDURES Final Re sult * SCR MAMMO BI INCL CAD (06/05/2020 1:32 PM EST) Anatomical Region Laterality Modality Radiographic Pricila ging 05/31/2019 8:17 AM EST Narrative 06/06/2020 10:27 AM EST This is a summary report. The complete report is available in the patient's medical record. If you cannot access the medical record, please contact the sending organization for a detailed fax or copy. Full field digital screening mammography, reviewed with CAD and compared to previous. ??The breasts are composed of fatty and fibroglandular tissue. ??No suspicious mass, architectural distortion or suspicious calcifications are identified. IMPRESSION: : No mammographic evidence of malignancy. BIRADS 1-Negative; N. 5 year breast cancer risk assessment 2.0 % Lifetime breast cancer risk assessment 5.6 % Breast cancer risk category Low (<15%) Procedure Note Vitaliy King MD - 05/11/2022 This is a summary report. The complete report is available in thepatient's medical record. If you cannot access the medical record, pleasecontact the sending organization for a detailed fax or copy. Full field digital screening mammography, reviewed with CAD and comparedto previous. The breasts are composed of fatty and fibroglandular tissue.No suspicious mass, architectural distortion or suspicious calcificationsare identified. IMPRESSION: : No mammographic evidence of malignancy. BIRADS 1-Negative; N. 5 year breast cancer risk assessment 2.0 % Lifetime breast cancer risk assessment 5.6 % Breast cancer risk category Low (<15%) Deepthi Ross MD IMG XR PROCEDURES Final Resu lt from Last 3 Months or Most Recently Relevant to Health Maintenance Insurance [employer] Care Teams Cycle Liaison Relationship Specialty Start Date End Date Gonzalo Saba MD [address] [place] [address] [place] [address] PCP - General Internal Medicine 02/25/21
== END 2024-07-26 14:37 | disposition home or self-care (01) ==
PROVIDERS: PCP Internal Medicine; Visit Provider Internal Medicine
DX: I42.8 Other cardiomyopathies (principal); I49.3 Ventricular premature depolarization
CPT/HCPCS: 93010; 99214

== ENCOUNTER → 2024-07-26 13:48 | Outpatient (BNVA) | payer OTHER, SELFPAY | PROVIDERS: PCP Internal Medicine; Visit Provider Internal Medicine | DX: I42.8 Other cardiomyopathies (principal); I49.3 Ventricular premature depolarization | CPT/HCPCS: 93005; 99212 ==

== ENCOUNTER 2025-01-24 07:46 | Outpatient (AMB) | payer OTHER, SELFPAY ==
--- OUTSIDE RECORDS SUMMARY | 2025-01-24 07:49 | XMS_ITS | Clinical Summary ---
Author Organization [facility] Address [address] [place] [address] Phone Care Team Providers Care Restaurant Delivery Driver Name Role Phone Gonzalo Saba MD Primary [...] Encounters Date Type Department Care Team Description 12/19/2024 Lab Requisition [facility] - Main Lab [address] [facility] [place] [address] David Basurto MD Other abnormal findings in urine 10/25/2024 Telephone [facility] [address] [place] [address] Gonzalo Saba MD from Last 3 Months Surgical History Surgery Date Site/Laterality Comments OTHER SURGICAL HISTORY 02/2005 PROCEDURE: MAMMOGRAM COLONOSCOPY 03/2004 PROCEDURE: HISTORICAL COLONOSCOPY; COMMENT: normal APPENDECTOMY 1999 PROCEDURE: VT APPENDECTOMY HYSTERECTOMY 2001 PROCEDURE: HISTORICAL VAGINAL HYSTERECTOMY W/O BSO; COMMENT: ovaries present CHOLECYSTECTOMY 2009 PROCEDURE: HISTORICAL CHOLECYSTECTOMY; COMMENT: neg cholangiogram 2009 BREAST BIOPSY Bilateral PROCEDURE: BX BREAST; PERC NEEDLE CORE W/IMAG GUID COLONOSCOPY 2014 PROCEDURE: HISTORICAL COLONOSCOPY; COMMENT: no polyps BREAST SURGERY Bilateral PROCEDURE: VT UNLISTED PROCEDURE BREAST; COMMENT: exc bx HYSTERECTOMY PROCEDURE: HISTORICAL HYSTERECTOMY OTHER SURGICAL HISTORY 2011 PROCEDURE: ARTHROSCOPY SHOULDER SURGI UPPER GASTROINTESTINAL ENDOSCOPY 2013 PROCEDURE: VT UPPER GI ENDOSCOPY PERFORMED; COMMENT: normal esophagus on PPI once a week. BLADDER SURGERY PROCEDURE: HISTORICAL BLADDER SURGERY; COMMENT: bladder suspension COLONOSCOPY 07/11/2019 PROCEDURE: HISTORICAL COLONOSCOPY; COMMENT: Minimal diverticulosis; random biopsies obtained: HERNIA REPAIR PROCEDURE: VT REPAIR FIRST ABDOMINAL WALL HERNIA Medical History [...] mass 11/06/2018 DX:Pelvic mass; COMMENT: Follows with BACKUP ADMINISTRATIVE COORDINATOR ONC at [facility]. Found incidentially on work up for hematuria on CT abdomen/pelvis 02/2018. S/p Pelvic US 03/2018 showed likely adnexal cyst. Repeat CT 09/2018 showed enlarging thus was referred to vocational training director/onc 10/2018 Dilated cardiomyopathy (CMS/ HCC V24, CMS/HCC V28) 12/02/2010 DX:Dilated cardiomyopathy (H CC); COMMENT: Follows with cardiology, NICM. Normal TTE [...] 61 06/18/2024 1:39 PM EST Temperature 36.6 C (97.9 F) 06/18/2024 1:39 PM EST Respiratory Rate 18 06/18/2024 1:39 PM EST [...] Panel) 04/30/2022 Colorectal Cancer Screening: Colonoscopy 04/30/2022 Hepatitis C Screening 04/30/2022 Medicare Annual Wellness Visit 04/30/2022 Social Influencers of Health Screening 04/30/2022 COVID-19 Vaccine ( season) 2024 05/21/2021, 08/16/2020, 07/26/2020 Depression Screening 05/23/2024 RSV Immunization Adult Patients (1 - 1-dose 75+ series) 2024 Influenza Vaccine (#1) 2025 8, 02/20/2017, 03/16/2016, Additional history exists Falls Risk Assessment 06/18/2025 06/18/2024 Osteoporosis Screening [...] age to complete this topic Meningococcal B Vaccine Aged Out No l onger eligible based on patient's age to complete this topic RSV Immunization Patients Under 20 months Aged Out No longer eligible based on patient's age to complete this topic Varicella Vaccines Aged Out No longer eligible based on patient's age to complete this topic Procedures Procedure Name Priority Date/Time Associated Diagnosis Comments BACTERIAL IDENTIFICATION AND SUSCEPTIBILITY, AEROBIC Routine 12/18/2024 12:00 AM EDT Other abnormal findings in urine DXA BONE DENSITY STUDY 1+ SITS AXIAL SKEL Routine 02/25/2022 3:22 PM EDT Other specified disorders of bone density and structure, multiple sites SCR MAMMO BI INCL CAD Routine 06/05/2020 1:32 PM EST Encounter for other screening for malignant neoplasm of breast from Last 3 Months or Most Recently Relevant to Health Maintenance Results * (ABNORMAL) Bacterial identification and susceptibility, aerobic (12/18/2024 12:00 AM EDT) Culture, Bacterial ID and Sensitivity Enterobacter cloacae complex(A) ELLIOT 12/20/2024 7:46 AM EDT [facility] Comment: This is an edited result. Previous organism was Gram negative bacilli on 12/19/2024 at 1124 EDT. Other Urine specimen from urethra / Unknown Non-blood Collection / Unknown 12/18/2024 12/19/2024 10:16 AM EDT Narrative Organism Antibiotic Method Susceptibility Enterobacter cloacae complex Amoxicillin/Clavulanate ELLIOT >=32 ug/ml: Resistant Enterobacter cloacae complex Cefoxitin ELLIOT >=64 ug/ml: Resistant Enterobacter cloacae complex Ceftazidime ELLIOT <=0.5 ug/ml: Susceptible Enterobacter cloacae complex Cefepime ELLIOT <=0.12 ug/ml: Susceptible Enterobacter cloacae complex Meropenem ELLIOT <=0.25 ug/ml: Susceptible Enterobacter cloacae complex Amikacin ELLIOT 2 ug/ml: Susceptible Enterobacter cloacae complex Gentamicin ELLIOT <=1 ug/ml: Susceptible Enterobacter cloacae complex Ciprofloxacin ELLIOT <=0.06 ug/ml: Susceptible Enterobacter cloacae complex Levofloxacin ELLIOT <=0.12 ug/ml: Susceptible Enterobacter cloacae complex Nitrofurantoin ELLIOT 64 ug/ml: Intermediate Enterobacter cloacae complex Trimethoprim/Sulfamethoxazo le ELLIOT <=20 ug/ml: Susceptible us David Basurto MD LAB MICROBIOLOGY - GENERAL ORDER MARS Final Result [facility] [address] [place] [address], * DXA BONE DENSITY STUDY 1+ SITS AXIAL SKEL (02/25/2022 3:22 PM EDT) Anatomical Region Laterality Modality Bone Densitometr y 10/29/2021 10:2 7 AM EDT Narrative 02/25/2022 3:37 PM EDT BONE DENSITY (DEXA) Lumbar Spine T-score is [...] to have osteoporosis by WHO criteria. The [facility] Department of Internal Medicine recommends using [...] Optional alternative screening schedule based on martínez Chamberlain., [facility] June 10, 2011 for patients with [...] to have osteoporosis by WHO criteria. The [facility] Department of Internal Medicine recommendsusing National [...] FRAX. Optional alternative screening schedule based on jae Chamberlain al., NEJMJanuary 2011 for patients with osteopenia (based on hip BMD T-score) is as follows: * advanced osteopenia (T scores -2.00 to -2.49), BMD testing every year * moderate osteopenia (T scores -1.50 to -1.99), BMD testing every 5years mild osteopenia or normal BMD (T scores -1.50 and higher), BMD testingevery 15 years us Nikkie Marie MD IMG DXA PROCEDURES Final [...] reviewed with CAD and compared to previous. The breasts are composed of fatty and fibroglandular tissue. No suspicious mass, architectural distortion or suspicious calcifications [...] Insurance MEDICARE [employer]ILY [employer] PLAN Care Teams Restaurant Delivery Driver Relationship Specialty Start Date End Date Gonzalo Saba MD [address] [place] [id number] PCP - General Internal Medicine 02/25/21
--- OUTSIDE RECORDS SUMMARY | 2025-01-24 07:49 | XMS_ITS | Clinical Summary ---
Author Organization [facility] Address [address] [place] [address] Care Team Providers Care Manager Life Insurance Name Role Phone Carrie Rico LITIGATION SUPPORT ANALYST Primary Care Provider [phone] Allergies Active Allergy Reactions Criticality Noted Date Comments Amoxicillin Rash 12/13/2024 Amoxicillin-Pot Clavulanate Rash 12/13/2024 Sulfamethoxazole-Trimeth oprim Abdominal Pain 12/13/2024 Ergotamine-Caffeine Unknown 12/13/2024 Inability to walk. Latex Rash 12/13/2024 Lidocaine Unknown Medium 12/13/2024 Lidocaine patch irritated her skin. Nitrofurantoin Unknown 12/13/2024 Oxycodone-Acetaminophen Blood pressure, low Simvastatin Muscle cramps 12/13/2024 Sulfadiazine Unknown 12/13/2024 Diazepam Blood pressure, low 12/13/2024 Medications spironolactone (ALDACTONE) 25 mg tablet Take 12.5 mg by mouth once a day. Active wheat dextrin (Benefiber, wheat dextrin,) 1 gram tablet Take 4 g by mouth daily. Active estradioL (ESTRACE) 1 mg tablet Take 1 mg by mouth once a day. Active icosapent ethyl (VASCEPA) 1 gram capsule Take 2 capsules by mouth 2 times a day. Active metoprolol succinate XL (TOPROL XL) 25 mg tablet Take 12.5 mg by mouth once a day. Active B.animalis,bifi d,infantis,long (PROBIOTIC 4X ORAL) Take 1 capsule by mouth daily. Active cyanocobalamin (vitamin B-12) 1,000 mcg tablet Take 1,000 mcg by mouth once a day. Active ascorbic acid, vitamin C, (VITAMIN C) 1,000 mg tablet Take 1,000 mg by mouth once a day. Active ipratropium (ATROVENT) 0.03% nasal sprayIndication s:Chronic rhinitis Administer 2 sprays into each nostril 3 times a day. 30 mL 5 Active Active Problems No known active problems Encounters Date Type Department Care Team Description 12/13/2024 1:30 PM EDT Office Visit [address] Allergy/Immunology [address] [place] [phone] Casi Quan, Other cough (Primary Dx); Chronic rhinitis from Last 3 Months Social History Tobacco Use Types Packs/Day Years Used Date Smoking Tobacco: Former Cigarettes Smokeless Tobacco: Never Alcohol Use Standard Drinks/Week Comments Defer 0 (1 standard drink = 0.6 oz pur e alcohol) Comments Unknown Sex and Gender Information Value Date Recorded Sex Assigned at Not on file Legal Sex Female 9:08 AM EDT Gender Identity Not on file Sexual Orientation Not on file Last Filed Vital Signs Vital Sign Reading Time Taken Comments Blood Pressure 110/66 12/13/2024 1:02 PM EDT Pulse 67 12/13/2024 1:02 PM EDT Temperature - - Respiratory Rate - - Oxygen Saturation 96% 12/13/2024 1:02 PM EDT Inhaled Oxygen Concentration - - Weight 67 kg (147 lb 9.6 oz) 12/13/2024 1:02 PM EDT Height - - Body Mass Index - - Plan of Treatment Health Maintenance Due Date Last Done Comments Cologuard 1950 Colon Cancer Screening 1950 Colonoscopy 1950 FOBT / Fit Test 1949 Hepatitis C Screening [address] Lung Cancer Screening (Baseline) 1999 Osteoporosis Screening 1999 Pneumococcal Vaccine: 50+ Years (3 of 3 - PCV20 or PCV21) 04/13/2018 04/13/2013, 11/04/2010 Zoster Vaccines (3 of 3) 06/01/2021 04/06/2021, 10/22 DTaP,Tdap,and Td Vaccines (2 - Td or Tdap) 03/28/2022 03/28/2012, 09/18/2001 Alcohol/Substance Use Screening 05/23/2024 Depression Screening and Follow-Up 05/23/2024 Health Care Proxy Review 05/23/2024 Social Drivers of Health Annual Screening 05/23/2024 RSV Vaccine (60+ years old and patients) (1 - 1-dose 75+ series) 2024 COVID-19 Vaccine (4 - 2024- season) 2025 05/21/2021, 08/16/2020, 07/26/2020 Influenza Vaccine (#1) 2025 8, 02/20/2017, 03/16/2016, Additional history exists Hepatitis B Vaccines Aged Out No long er eligible based on patient's age to complete this topic Insurance [facility] Care Teams Manager Life Insurance Relationship Specialty Start Date End Date Carrie Rico NP [address] [place], [place] [id number] PCP - General 10/22/24
--- OUTSIDE RECORDS SUMMARY | 2025-01-24 07:49 | XMS_ITS | Encounter Summary ---
Author Organization [facility] Address [address] [place] [address] Care Team Providers Care Credit Office Manager Name Role Phone Gonzalo Saba MD Primary Care Provider [phone] Encounter Details Date Type Department Care Team (Late st Contact Info) Description 12/19/2024 Lab Requisition [facility] - Main Lab [address] [facility] [place] [phone] David Basurto MD [address] [place] [phone] Other abnormal findings in urine Social History Tobacco Use Types Packs/Day Years [...] Orientation Straight 06/18/2024 8: 53 AM EST documented as of this encounter Plan of Treatment Not on file documented as of this encounter Procedures Procedure Name Priority Date/Time Associated Diagnosis Comments BACTERIAL IDENTIFICATION AND SUSCEPTIBILITY, AEROBIC Routine 12/18/2024 12:00 AM EDT Other abnormal findings in urine documented in this encounter Results * (ABNORMAL) Bacterial identification and susceptibility, aerobic (12/18/2024 12:00 AM EDT) Culture, Bacterial ID and Sensitivity Enterobacter cloacae complex(A) ELLIOT 12/20/2024 7:46 AM EDT [facility] Comment: This is an edited [...] MICROBIOLOGY - GENERAL ORDER MARS Final Result [facility] [address] [place] [address], documented in this encounter Visit Diagnoses Diagnosis Other abnormal findings in urine documented in this encounter Care Teams Credit Office Manager Relationship Specialty Start Date End Date Gonzalo Saba MD [address] [place] [id number] PCP - General Internal Medicine 02/25/21 documented as of this encounter
[2025-01-24 08:19] VITALS: BP 102/60; PULSE 64; BMI 23.1
--- NOTE | 2025-01-24 08:19 | A.OFFVIS_ITS ---
Vital Signs 01/24/25 08:19 Height 5 ft 6 in Weight 143 lb BMI 23.1 BP 102/60 Blood Pressure Location Lt brachial Position Sitting Pulse 64 Pulse Source Pulse Oximeter Intake Visit Reasons: Palpitations Allergies amoxicillin (Augmentin) Allergy (Unknown, Verified 02/10/23 13:32) rash clavulanic acid (Augmentin) Allergy (Unknown, Verified 02/10/23 13:32) rash diazepam (Valium) Allergy (Unknown, Verified 02/10/23 13:32) unk nitrofurantoin (From Macrobid) Allergy (Unknown, Verified 02/10/23 13:32) unk oxycodone (Percocet) Allergy (Unknown, Verified 02/10/23 13:32) unk simvastatin Allergy (Unknown, Verified 02/10/23 13:32) unk sulfamethoxazole (From Bactrim) Allergy (Unknown, Verified 02/10/23 13:32) unk trimethoprim (From Bactrim) Allergy (Unknown, Verified 02/10/23 13:32) unk cafergot Allergy (Unknown, Uncoded 02/10/23 13:32) unk Latex Gloves Allergy (Unknown, Uncoded 02/10/23 13:32) unk Medication List - Last Reconciled 01/24/25 by Nguyễn Hobbs MD cholecalciferol (vitamin D3) three timed a week orally; metoprolol succinate ER 12.5 mg (1/2 x 25 mg) PO DAILY 90 days spironolactone 12.5 mg (1/2 x 25 mg) PO DAILY HPI Comments Details: Adrianna returns for follow-up regarding cardiomyopathy. To recall, she was a patient of [facility]. She has a history of longstanding nonischemic cardiomyopathy. Initially diagnosed around 2009. At that time, LVEF was 40-45%. Subsequently stress test with normal perfusion. It seems that she has had another stress test in 2018 which also showed normal perfusion. She had reported palpitations in the past and it seems it got better but for the last couple of months, she has again noticing palpitations. Previously, noted to have PVCs. Otherwise, she has had lab work done through her own PCP and that shows elevated cholesterol as well as apolipoprotein B and hence she is concerned about that. [facility] Medical History (Updated 01/24/25 @ 09:03 by Nguyễn Hobbs MD) Clostridium difficile colitis Fecal incontinence Nonischemic cardiomyopathy Surgical History No pertinent past surgical history Family History Father No problems noted. Mother No problems noted. Social History Alcohol intake: never Patient Tobacco Use Status: Former Tobacco user Years Smoked: 8 +/- Review of Systems Const Denies weakness ENT Denies dizziness Card Denies chest pain, Denies chest pain with activity, Denies syncope, Denies rapid heart rate, Denies pedal edema, Denies edema, Denies leg edema, Denies lightheadedness, Reports palpitations, Denies dyspnea, Denies dyspnea on exertion and Denies orthopnea Resp Denies cough, Denies dyspnea and Denies dyspnea on exertion GI Denies hematochezia and Denies change in stool character Musc Denies abnormal gait, Denies muscle cramps, Denies muscle weakness, Denies numbness, Denies radiating pain into limb and Denies tingling Neuro Denies abnormal gait, Denies dizziness, Denies syncope, Denies numbness, Denies tingling and Denies weakness Endo Reports palpitations Physical Exam Vital Signs: Last Vital Signs Pulse 64 01/24/25 08:19 BP 102/60 01/24/25 08:19 BMI result Body Mass Index 23.1 Const General: comfortable and no acute distress Orientation/consciousness: patient oriented x3 HEENT Other: Unremarkable Head: Yes normal to inspection Neck Neck: Yes normal visual inspection Chest Chest palpation & inspection: normal inspection of the chest Resp Auscultation: clear to auscultation bilaterally Cardio Palpation: normal PMI Heart sounds: S1 normal heart sound present, S2 normal heart sound present, no gallops, no murmurs and no rubs GI Palpation (GI): Soft to palpation Back/Spine/Pelvis Other: unremarkable Skin General skin exam: no rashes or lesions noted Neuro General: patient oriented x3 Extrem General: Yes normal to inspection Psych Mental Status: mental status grossly normal Assessment & Plan Assessment & Plan (1) Nonischemic cardiomyopathy: Code(s): I42.8 - Other cardiomyopathies Category: Medical (2) PVC (premature ventricular contraction): Code(s): I49.3 - Ventricular premature depolarization Category: Medical (3) Hyperlipidemia, unspecified: Code(s): E78.5 - Hyperlipidemia, unspecified Category: Medical Plan Cardiac studies reviewed. Echocardiogram from 2022 with LVEF of 40-45%. Myocardial perfusion imaging study from 2022 unremarkable. Holter 2022 shows underlying sinus rhythm with an average rate of 70/Min. Frequent PVCs. [place] of 1.9%. With regard to the mild cardiomyopathy, she is stable. She remains on beta- blockers/spironolactone. Previously, losartan was stopped because of low blood pressure. Not on regular diuretics. With regard to question of palpitations, previously known to have PVCs. We will recheck a Holter to see if there is any change in burden. With regard to cholesterol, LDL 149 mg/dL and triglycerides 175 mg/dL. Apolipoprotein B elevated at 128 mg mg/dL. Recommend taking statins. There was mentioned of simvastatin allergy but she believes it might have been just muscle aches. We will try a small dose of atorvastatin. Recheck lipids in 3 months or so. Discussion Notes During the visit, I discussed with the patient the need for a Holter monitor to evaluate her heart palpitations and PVCs. We also talked about starting a statin for her elevated cholesterol, considering her fibromyalgia and potential side effects. I explained the importance of follow-up labs in three months to monitor the effectiveness of the statin therapy and advised her to report any adverse effects. We also discussed the limitations of [id number] fish oil supplements for cholesterol management. Patient was informed and verbally consented to the use of an ambient scribe for clinic note documentation during this visit. Orders: Orders ECG 3 day holter monitor Today R00.2 - Palpitations Lipid Panel 3 Months E78.5 - Hyperlipidemia, unspecified Medications: New atorvastatin (Lipitor) 10 mg PO QPM 90 tabs 1RF Patient Instructions: - Start taking the prescribed statin medication. - Report any muscle aches or other side effects to the doctor. - Undergo a Holter monitor evaluation as scheduled. - Follow up with lab tests in three months to check cholesterol levels. Coding Level of Care Code Est Pt Level 4 (80236) Complex EM visit Add On G2211 Diagnoses Nonischemic cardiomyopathy I42.8 PVC (premature ventricular contraction) I49.3 Hyperlipidemia, unspecified E78.5
== END 2025-01-24 08:53 | disposition home or self-care (01) ==
LOC: HO.HCS 07:47
PROVIDERS: PCP Internal Medicine; Visit Provider Internal Medicine
DX: I42.8 Other cardiomyopathies (principal); I49.3 Ventricular premature depolarization; E78.5 Hyperlipidemia, unspecified
CPT/HCPCS: 99214

== ENCOUNTER → 2025-01-24 07:46 | Outpatient (BNVA) | payer OTHER, SELFPAY | PROVIDERS: PCP Internal Medicine; Visit Provider Internal Medicine | DX: I49.3 Ventricular premature depolarization (principal); I42.8 Other cardiomyopathies; E78.5 Hyperlipidemia, unspecified | CPT/HCPCS: 99212 ==

== ENCOUNTER → 2025-02-05 12:43 | Outpatient (REF) | payer OTHER, SELFPAY ==
--- NOTE | 2025-02-05 12:48 | HM_ITS ---
* Total monitoring time about 7 days. * Underlying is sinus with an average rate of 70/Min. * Rare supraventricular ectopy. * Frequent ventricular ectopy with a burden of 15%. Rare couplets and isolated triplet. Two runs, longest 5 beats, monomorphic. Evidence of bigeminy, trigeminy. Ectopic beats have similar polarity, but subtle differences in morphology. * No significant pauses or high-grade AV blocks. * Palpitations in patient diary correlates with ventricular ectopy. MTDD
--- OUTSIDE RECORDS SUMMARY | 2025-02-05 16:41 | XMS_ITS | Clinical Summary ---
Author Organization [facility] Address [address] [place] [address] Phone Care Team Providers Care Vocational Guidance Counselor Name Role Phone Gonzalo Saba MD Primary Care Provider [phone] Allergies Active Allergy Reactions Criticality Noted Date [...] Department Care Team Description 12/19/2024 Lab Requisition [facility] - Main Lab [address] [facility] [employer] [place] [phone] David Basurto MD Other abnormal findings in urine from Last 3 Months Surgical History Surgery Date Site/Laterality Comments OTHER SURGICAL HISTORY 02/2005 PROCEDURE: MAMMOGRAM COLONOSCOPY 03/2004 PROCEDURE: HISTORICAL COLONOSCOPY; COMMENT: normal APPENDECTOMY 1999 PROCEDURE: PA APPENDECTOMY HYSTERECTOMY 2001 PROCEDURE: HISTORICAL VAGINAL HYSTERECTOMY W/O BSO; COMMENT: ovaries present CHOLECYSTECTOMY 2009 PROCEDURE: HISTORICAL CHOLECYSTECTOMY; COMMENT: neg cholangiogram 2009 BREAST BIOPSY Bilateral PROCEDURE: BX BREAST; PERC NEEDLE CORE W/IMAG GUID COLONOSCOPY 2014 PROCEDURE: HISTORICAL COLONOSCOPY; COMMENT: no polyps BREAST SURGERY Bilateral PROCEDURE: PA UNLISTED PROCEDURE BREAST; COMMENT: exc bx HYSTERECTOMY PROCEDURE: HISTORICAL HYSTERECTOMY OTHER SURGICAL HISTORY 2011 PROCEDURE: ARTHROSCOPY SHOULDER SURGI UPPER GASTROINTESTINAL ENDOSCOPY 2013 PROCEDURE: PA UPPER GI ENDOSCOPY PERFORMED; COMMENT: normal esophagus on PPI once a week. BLADDER SURGERY PROCEDURE: HISTORICAL BLADDER SURGERY; COMMENT: bladder suspension COLONOSCOPY 07/11/2019 PROCEDURE: HISTORICAL COLONOSCOPY; COMMENT: Minimal diverticulosis; random biopsies obtained: HERNIA REPAIR PROCEDURE: PA REPAIR FIRST ABDOMINAL WALL HERNIA Medical History [...] mass 11/06/2018 DX:Pelvic mass; COMMENT: Follows with [facility] at [facility]. Found incidentially on work up for hematuria on CT abdomen/pelvis 02/2018. S/p Pelvic US 03/2018 showed likely adnexal cyst. Repeat CT 09/2018 showed enlarging thus was referred to heart surgeon/onc 10/2018 Dilated cardiomyopathy (CMS/ HCC V24, CMS/HCC [...] 04/30/2022 Social Influencers of Health Screening 04/30/2022 Depression Screening 05/23/2024 RSV Immunization Adult Patients (1 - 1-dose 75+ series) 2024 COVID-19 Vaccine ( - 2024- season) 2025 05/21/2021, 08/16/2020, 07/26/2020 [...] cloacae complex(A) ELLIOT 12/20/2024 7:46 AM EDT [facility] Comment: This is an edited [...] MICROBIOLOGY - GENERAL ORDER MARS Final Result [facility] ([facility] [email or web address] [address] [place] [address], * DXA BONE DENSITY STUDY 1+ SITS [...] to have osteoporosis by WHO criteria. [facility] Department of Internal Medicine recommends [...] alternative screening schedule based on martínez Chamberlain., [facility] June 10, 2011 for patients with osteopenia [...] to have osteoporosis by WHO criteria. [facility] Department of Internal Medicine recommendsusing [...] Insurance [employer] Care Teams Vocational Guidance Counselor Relationship Specialty Start Date End Date Gonzalo Saba MD [address] [place] [id number] PCP - General Internal Medicine 02/25/21
--- OUTSIDE RECORDS SUMMARY | 2025-02-05 16:41 | XMS_ITS | Clinical Summary ---
Author Organization [facility] Address [address] [place] [address] Care Team Providers Care Manager Inventory Name Role Phone Carrie Rico WOOD DIE MAKER Primary Care Provider [phone] Allergies Active Allergy Reactions Criticality Noted Date [...] Description 12/13/2024 1:30 PM EDT Office Visit [address] Allergy/Immunology [address] [place] [phone] Casi Quan, Other cough (Primary Dx); [...] patient's age to complete this topic Insurance [facility] Care Teams Manager Inventory Relationship Specialty Start Date End Date Carrie Rico NP [address] [place], [place] [phone] PCP - General 10/22/24
--- OUTSIDE RECORDS SUMMARY | 2025-02-05 16:41 | XMS_ITS | Encounter Summary ---
Author Organization [facility] Address [address] [place] [address] Care Team Providers Care Canal Tender Name Role Phone Gonzalo aSba MD Primary Care Provider [phone] Encounter Details Date Type Department Care Team (Late st Contact Info) Description 12/19/2024 Lab Requisition [facility] - Main Lab [address] [facility] [place] [phone] David Basurto MD [address] [place] [phone] Other abnormal findings in urine Social History [...] cloacae complex(A) ELLIOT 12/20/2024 7:46 AM EDT [facility] Comment: This is an edited result. [...] MICROBIOLOGY - GENERAL ORDER MARS Final Result [facility] [address] [place] [address], documented in this encounter Visit Diagnoses Diagnosis Other abnormal findings in urine documented in this encounter Care Teams Canal Tender Relationship Specialty Start Date End Date Gonzalo Saba MD [address] [place] [phone] PCP - General Internal Medicine 02/25/21 documented as of this encounter
== END ==
LOC: HO.CARD 12:43
PROVIDERS: PCP Nurse Practitioner Family; Visit Provider Internal Medicine
DX: R00.2 Palpitations (principal)
CPT/HCPCS: 93242

== ENCOUNTER → 2025-02-05 12:48 | Outpatient (BNV) | payer OTHER, SELFPAY | PROVIDERS: PCP Nurse Practitioner Family; Visit Provider Internal Medicine | DX: I49.49 Other premature depolarization (principal); I49.3 Ventricular premature depolarization | CPT/HCPCS: 93244 ==